=== PATIENT | male | born 1995 | race Caucasian/White ===

== ENCOUNTER 2022-02-08 08:06 | Day surgery (SDC) | payer OTHER ==
[~2022-02-08] VITALS: Ht 180.3 cm; Wt 83.9 kg
[2022-02-08] MEDS ORDERED: diphenhydrAMINE 50 MG/ML VIAL ONE (09:42)
[2022-02-08] MEDS ORDERED: MIDAZOLAM 2 MG/2 ML VIAL ONE (09:42)
[2022-02-08] MEDS ORDERED: fentaNYL citrate 0.05 MG/ML VIAL ONE (09:43)
[2022-02-08] MEDS ORDERED: LIDOCAINE 2% 100 MG/5 ML UJET TP ONE (09:43)
[2022-02-08] MEDS ORDERED: fentaNYL citrate 0.05 MG/ML VIAL IVP ONE (13:35)
[2022-02-08] MEDS ORDERED: diphenhydrAMINE 50 MG/ML VIAL IVP ONE (13:35)
[2022-02-08] MEDS ORDERED: MIDAZOLAM 2 MG/2 ML VIAL IVP ONE (13:35)
== END 2022-02-08 11:16 | disposition home or self-care (01) ==
LOC: MMU 08:06 → MDS 08:06
PROVIDERS: ATTEND Internal Medicine Gastroenterology
DX: R10.30 Lower abdominal pain, unspecified (principal); K59.00 Constipation, unspecified; Z98.890 Other specified postprocedural states; Z88.8 Allergy status to other drugs, medicaments and biological substances; Z20.822 Contact with and (suspected) exposure to COVID-19
CPT/HCPCS: 45380; 87426; 88305; J1200; J2250; J3010